=== PATIENT | female | born 1965 | race Caucasian/White ===

== ENCOUNTER 2019-01-17 11:09 | Emergency (ER) | payer OTHER ==
--- NOTE | 2019-01-17 13:09 | UC ---
General HPI - HPI Summary HPI Summary: 1. SWOLLEN SORE THROAT X 1 WEEK. PT NOTES A WHITE SPOT ON HER R TONSIL. NO FEVER. PT IS ON AN IMMUNE SUPPRESSIVE DRUG FOR HER PSORIATIC ARTHRITIS. 2. FATIGUE AND JOINT PAINS TO HER HANDS AND FEET X 2 WEEKS. WONDERS IF LYME DISEASE. NO HX TICK BITE. HX PSORIATIC ARTHRITIS BUT HASN'T HAD THESE JOINT ISSUES. NO RASH OR FEVER. - History of Current Complaint Chief Complaint: UCRespiratory Stated Complaint: ST Time Seen by Provider: 01/17/19 13:00 Hx Obtained From: Patient Hx Last Menstrual Period: 8 years ago; ablation Onset/Duration: Gradual Onset Timing: Constant Pain Intensity: 4 - Allergy/Home Medications Allergies/Adverse Reactions: Allergies Allergy/AdvReac Type Severity Reaction Status Date / Time diphenhydramine Allergy elevated Verified 01/17/19 11:38 [From Benadryl] BP, heart racing oxycodone Allergy Headache Verified 01/17/19 11:38 prohance Allergy Vomiting Uncoded 01/17/19 11:38 Home Medications: Home Medications Leflunomide 20 mg PO DAILY 01/17/19 [History Confirmed 01/17/19] Ustekinumab [Stelara] 90 mg SQ SEE INSTRUCTIONS 01/17/19 [History Confirmed ] PMH/Surg Hx/FS Hx/Imm Hx - Additional Past Medical History Additional PMH: Breast CA, Psoriatic arthritis Endocrine History: Diabetes, Dyslipidemia - Surgical History Surgical History: Yes Surgery Procedure, Year, and Place: MASTECTOMY AND RECONSTRUCTION - RIGHT SIDE ( SILICONE IMPLASNT); 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 Negative: Fever, Chills Eyes: Negative: Eye Redness ENT: Positive: Sore Throat. Negative: Ear Ache, Sinus Congestion Respiratory: Negative: Shortness Of Breath, Cough Musculoskeletal: Positive: Arthralgia. Negative: Decreased ROM, Edema, Myalgia Neurological: Negative: Headache Physical Exam Triage Information Reviewed: Yes Appearance: Well-Appearing Vital Signs: Initial Vital Signs Temp 98.2 F 01/17/19 11:41 Pulse 70 01/17/19 11:41 Resp 16 01/17/19 11:41 Pulse Ox 97 01/17/19 11:41 Vital Signs Reviewed: Yes Eyes: Positive: Conjunctiva Clear ENT: Positive: Pharyngeal erythema - with slight swelling., TMs normal, Uvula midline, Other - Tonsil stone(white on R tonsil) swept off with tongue depressor.. Negative: Nasal congestion, Nasal drainage, Tonsillar exudate, Trismus, Muffled voice, Hoarse voice Neck: Positive: Supple, Nontender, Enlarged Nodes @ - peritonsilar Respiratory: Positive: No respiratory distress Cardiovascular: Positive: RRR Musculoskeletal: Positive: ROM Intact, No Edema Neurological: Positive: Alert Psychological: Positive: Age Appropriate Behavior Skin Exam: Normal Diagnostics - Laboratory Lab Results: rapid strep=neg with TC pending Course/Dx - Differential Dx - Multi-Symptom Differential Diagnoses: Other - non toxic. rapid strep=negative. tc pending. will tx for presumtive bacterial infection given pt is on an immune suppressant and s/s's x 1 week. white spot was a tonsil stone. i think the joint pain is more reflective of her psoriatic arthritis given no hx tick bite or rash of lyme disease. 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 - Diagnoses Provider Diagnosis: Pharyngitis, Arthralgia Discharge ED - Sign-Out/Discharge Documenting (check all that apply): Patient Departure All imaging exams completed and their final reports reviewed: No Studies - Discharge Plan Condition: Stable Disposition: HOME Prescriptions: Amoxicillin PO (*) [Amoxicillin 500 MG CAP*] 500 mg PO Q12H 10 Days #20 cap Patient Education Materials: Pharyngitis (ED), Arthritis (ED) Referrals: Bennett Lynne DO Pet [Primary Care Provider] - 5 Days Additional Instructions: FOLLOW UP WITH YOUR ANALYTICAL LAB TECHNICIAN SOON POSSIBLE FOR THE JOINT PAIN. FOLLOW UP WITH DR LYNNE IF YOUR THROAT IS NOT BETTER WITHIN THE NEXT 5 DAYS OR SOONER IF WORSE. - Billing Disposition and Condition Condition: STABLE Disposition: Home
[2019-01-17 13:38] VITALS: BP 120/52
== END 2019-01-17 13:38 | disposition home or self-care (01) ==
LOC: UCCORT 11:09
DX: J02.9 Acute pharyngitis, unspecified (principal); R53.83 Other fatigue; M25.542 Pain in joints of left hand; M25.541 Pain in joints of right hand; M25.572 Pain in left ankle and joints of left foot; M25.571 Pain in right ankle and joints of right foot; L40.50 Arthropathic psoriasis, unspecified; E11.9 Type 2 diabetes mellitus without complications; Z96.653 Presence of artificial knee joint, bilateral; Z88.5 Allergy status to narcotic agent; Z88.8 Allergy status to other drugs, medicaments and biological substances
CPT/HCPCS: 87070; 87077; 87651; 99212; G0463